=== PATIENT | female | born 1960 | race Caucasian/White ===

== ENCOUNTER 2020-02-02 17:29 | Inpatient (IN) | payer MEDICARE ==
[~2020-02-02] VITALS: Ht 165.1 cm; Wt 61.7 kg
--- NOTE | 2020-02-02 17:30 | NUR ---
jimbo, from home, on 5150 hold for danger to self, danger to others and being gravely disabled. depressed, "banging on doors and window" per report. to ER bed 11, hooked to monitor. patient calm and cooperative upon arrival to ED. sitter at bedside. patient denies SI/HI "I was just having an argument with my sister". Dr Robbins at bedside. kept safe and comfortable.
--- NOTE | 2020-02-02 17:35 | NUR ---
urine sample collected and sent to lab
[2020-02-02 18:13] LABS: BASOPHILS # (AUTO) 0.2 /CMM (0.0-0.2); BASOPHILS % (AUTO) 1.7 % (0.0-2.0); EOSINOPHILS % (AUTO) 1.1 % (0.0-6.0); HEMATOCRIT 40 % (33-45); HEMOGLOBIN 13.8 g/dL (11.5-14.8); LYMPHOCYTES # (AUTO) 1.8 /CMM (0.8-4.8); LYMPHOCYTES % (AUTO) 19.3 % (20.0-44.0); MEAN CORPUSCULAR HGB CONC 34 g/dl (31.0-36.0); MEAN CORPUSCULAR VOLUME 99 fL (82-100); MONOCYTES # (AUTO) 0.4 /CMM (0.1-1.30); MONOCYTES % (AUTO) 4.6 % (2.0-12.0); NEUTROPHILS # (AUTO) 6.8 /CMM (1.8-8.9); NEUTROPHILS % (AUTO) 73.3 % (43.0-81.0); PLATELET COUNT (AUTO) 217 /CMM (150-450); RED BLOOD CELL COUNT(AUTO) 4.04 MIL/uL (4.0-5.2); WHITE BLOOD COUNT (AUTO) 9.3 K/uL (4.3-11.0)
[2020-02-02 18:17] LABS: APPEARANCE,URINE Clear (CLEAR); BILIRUBIN,URINE Negative (NEGATIVE); BLOOD, URINE Negative Ery/uL (NEGATIVE); COLOR,URINE Yellow (YELLOW); KETONES,URINE Negative (NEGATIVE); LEUKOCYTE ESTERASE ,URINE Negative (NEGATIVE); NITRITE, URINE Negative (NEGATIVE); PH,URINE 6.5 (5.0-8.0); PROTEIN,URINE Negative (NEGATIVE); UGLUCOSE Negative (NEGATIVE); UROBILINOGEN,URINE 0.2 EU/dL (0.2)
[2020-02-02 18:32] LABS: ACETAMINOPHEN 0 ug/ml (10-30); ALANINE AMINOTRANSFERASE 39 U/L (12-78); ALBUMIN 3.9 g/dL (3.4-5.0); ALCOHOL, BLOOD < 3 mg/dL (0-0); ALKALINE PHOSPHATASE 95 U/L (46-116); ASPARTATE AMINOTRANSFERASE 28 U/L (15-37); BILIRUBIN,DIRECT 0.2 mg/dL (0.0-0.2); BILIRUBIN,TOTAL 0.8 mg/dL (0.2-1.0); CALCIUM, SERUM 8.8 mg/dL (8.5-10.1); CARBON DIOXIDE 26 mmol/L (21-32); CHLORIDE 102 mmol/L (98-107); CREATININE 0.9 mg/dL (0.6-1.3); GLUCOSE 102 mg/dL (74-106); POTASSIUM 3.4 mmol/L (3.5-5.1); SALICYLATE 6.2 mg/dL (2.8-20.0); SODIUM SERUM 137 mmol/L (136-145); TOTAL PROTEIN, SERUM 6.9 g/dL (6.4-8.2); UREA NITROGEN, BLOOD 8 mg/dL (7-18)
--- NOTE | 2020-02-02 18:43 | NUR ---
REPORT GIVEN TO GEORGETTE OF [facility]
--- NOTE | 2020-02-02 20:20 | NUR ---
GPS ADMISSION NOTE: RECEIVED PT. FROM [facility] ER. PT. ARRIVED IN THIS UNIT AT 2020 [facility] WITH 1 EMT STAFF. PT. ADMITTED ON 5150 HOLD FOR DTS, DTO, GD. PER HOLD PT. WAS AT HER MOTHER'S HOUSE, BANGING ON THE DOORS AND WINDOWS, GETTING INTO ARGUMENTS WITH MOTHER, DRIVING UNDER INFLUENCE, NOT SLEEPING AND EATING. PT STATES "I WANT TO KILL MYSELF." PT. IS DEPRESSED AND IS NOT ABLE TO MAKE RATIONAL DECISIONS. THE 5150 WAS REVIEWED AND THE DOCUMENTATION IN THE 5150 HOLD APPEARS TO REFLECT THE PRESENTATION OF PATIENT. UPON FACE TO FACE ASSESSMENT PATIENT IS NOTED TO BEING DISHEVELED, ANXIOUS, DEPRESSED. PT IS CURRENTLY IN ROOM RESTING/SLEEPING. NO SIGNS OF ACUTE DISTRESS, BREATHING UNLABORED WITH EQUAL RISE AND FALL OF CHEST. PT. IS A/O X3 ON ROOM AIR. PT. DENIES SI/HI AT THIS TIME. PT. SIGNED PAPERWORK. ADVISED OF HOLD. PT. IS UNDER PSYCHIATRIC CARE OF DR. LEIGH AND MEDICAL CARE OF DR. ARIAS. PT. BELONGINGS WERE INVENTORIED AND CHECKED FOR CONTRABAND. PT CHARTING AND SKIN ASSESSMENT DONE. PT. ORIENTED TO ROOM, FLOOR, STAFF. PT EDUCATED USE OF CALL LIGHT. BED SIDE RAILS UP X2 FOR SAFETY, BED IN LOCKED POSITION, LOW POSITION. WILL CONTINUE TO MONITOR FOR SAFETY AND BEHAVIOR.
[2020-02-02] MEDS ORDERED: POTASSIUM CHLORIDE 20 MEQ TAB.PRT.SR PO ONE (20:30)
[2020-02-02 21:00] VITALS: BP 145/95
[2020-02-02] MEDS ORDERED: BLOOD SUGAR DIAGNOSTIC 1 EACH STRIP IN ONE (21:00)
[2020-02-02] MEDS ORDERED: MAG HYDROX/AL HYDROX/SIMETH 30 ML UDC PO PRN (21:00)
[2020-02-02] MEDS ORDERED: MAGNESIUM HYDROXIDE 30 ML UDC PO PRN (21:00)
[2020-02-02] MEDS: LORAZEPAM 0.5 MG TABLET PO PRN (21:39)
--- NOTE | 2020-02-02 21:39 | NUR ---
GPS RN NOTE: ANXIETY PT. C/O OF BEING ANXIOUS AND REQUESTED ATIVAN. ADMINISTERED ATIVAN 0.5 MG PO PRN ORDERED. WILL CONTINUE TO MONITOR FOR SAFETY AND BEHAVIOR
[2020-02-02] MEDS ORDERED: FLUV50TA10 BC (22:37)
[2020-02-02] MEDS ORDERED: LORA-259 PO (22:37)
[2020-02-02] MEDS ORDERED: MIRT30TA PO (22:37)
[2020-02-03] MEDS: LORAZEPAM 0.5 MG TABLET PO PRN ×3 (07:19→19:57)
--- NOTE | 2020-02-03 07:19 | NUR ---
RN NOTE- ANXIETY/ PT W RESTLESSNESS ND ANXIETY. ATIVAN 0.5 MG GIVEN
[2020-02-03 07:25] LABS: ALBUMIN 3.5 g/dL (3.4-5.0); BILIRUBIN,TOTAL 0.6 mg/dL (0.2-1.0); CALCIUM, SERUM 8.7 mg/dL (8.5-10.1); CREATININE 0.8 mg/dL (0.6-1.3); PHOSPHORUS 3.2 mg/dL (2.5-4.9); POTASSIUM 4.3 mmol/L (3.5-5.1); TOTAL PROTEIN, SERUM 6.9 g/dL (6.4-8.2)
[2020-02-03 07:35] LABS: THYROID STIMULATING HORMONE 1.688 uIU/mL (0.358-3.74)
[2020-02-03 08:00] VITALS: BP 130/80
--- NOTE | 2020-02-03 09:00 | NUR ---
RN NOTE- PT UP IN ELO[place], PO INTAKE GOOD MED COMPLIANT DENIES SI HI AH VH DIRECTABLE WITHDRAWN CALM
--- NOTE | 2020-02-03 13:28 | NUR ---
RN NOTE- PT ANXIOUS AND RESTLESS. ATIVAN 0.5 MG GIVEN
--- NOTE | 2020-02-03 15:12 | NUR ---
Individual Counseling: This SW met with pt. at bedside to facilitate therapeutic milieu regarding support systems.The patient was receptive to meeting with SW. Patient discussed support systems and familial relationships. SW use active listening, mirroring and validation. Patient stated she has called her Mother, Bre and Sister, Laura to apologize. SW commended patient for reaching out to her family to discuss current situation. Patient demonstrates insight as evidenced by stating, "I need help for my alcoholism". Patient remained cooperative throughout discussion. Patient will be invited to participate in future counseling session
[2020-02-03 16:00] VITALS: BP 125/78
--- NOTE | 2020-02-03 16:25 | NUR ---
RN NOTE- SPOKE W HUMZA [phone] FAMILY MEMBER REGARDING PT. STATES THEY WERE TOLD FPT HAS PANCREATITIS BEFORE COMING TO THIS HOSPITAL. RANJIT FOOTE NOTIFIED AND ASKED TO PHONE FAMILY. PT ASYMPTOMATIC, NO AMYLASE OR LIPASE LABS NOTED.
[2020-02-03 20:29] VITALS: BP 117/63
[2020-02-03] MEDS: MIRTAZAPINE 15 MG TABLET PO SCH (21:15)
[2020-02-03] MEDS: risperiDONE 1 MG TABLET PO SCH (21:16)
[2020-02-04] MEDS: LORAZEPAM 0.5 MG TABLET PO PRN ×3 (06:51→17:49)
[2020-02-04 08:00] VITALS: BP 121/79
--- NOTE | 2020-02-04 10:05 | NUR ---
Family Contact: SW called the pts sister, Randee ([phone]), but the pts mother picked up. She stated that the SW should talk to Randee because she is aware of the pts finances and that she will have her call the SW when she returns to their home. Pts mother stated that the pt cannot return to living with them and that the PET team had informed them that the SW can place the pt. SW stated that she will attempt to place her once there is more information on her finances.
--- NOTE | 2020-02-04 10:14 | NUR ---
Initial Discharge Plan: Pt is currently homeless. Pt is open to placement options but states that she wants to go back to living with her mom and sister. SONNY will work with the MD and the pt regarding appropriate discharge planning. SW will form a safe and proper discharge plan.
--- NOTE | 2020-02-04 10:58 | NUR ---
RN NOTE:PATIENT C/O ANXIETY MEDICATED WITH ATIVAN0.5MG WILL CONTINUE TO MONITOR .
--- NOTE | 2020-02-04 11:15 | NUR ---
Family Contact: Pt's sister, Randee ([phone]), called the SW and stated that the pt cannot return to their home as the pt has been aggressive with the family members and partaking in alcohol usage. She stated that she thought that the pt wanted to go to a treatment center from the hospital when the SW mentioned a residential facility as a placement option. SW stated that the pt did not mention wanting to go to a treatment center and SW stated that she would talk to her about it. Pts sister stated that she did not want the pt to go to a SNF and would prefer that she is placed in a Board and Care facility. SW referred her to [facility] to start that process.
--- NOTE | 2020-02-04 12:48 | NUR ---
Substance Abuse Intervention: SW conducted a substance abuse intervention with the pt due to her alcohol abuse upon admission.
--- NOTE | 2020-02-04 12:58 | NUR ---
Individual Intervention: SW met with the pt to discuss discharge planning. SW provided the pt with all of the possible options and pt stated that she wanted to go home to her mom's house. SW continued to express to her that is not an option according to her family. Pt appeared to be agreeable to the nursing facility as she stated that she does not have the current funds for board and care placement. SW also informed her that the pts family would like for her to be admitted into a treatment program such as [facility] or [facility]. Pt stated that she has already detoxed and so she does not need an inpatient setting. Pt stated that she needs an outpatient and would like to attend from her mother's home. SW again explained that she cannot return to her mother's home and that she will need alternative placement. SW recommended that the pt speak to her family members that way a discharge plan can be set in motion when the SW follows up.
--- NOTE | 2020-02-04 14:04 | NUR ---
and SONNY NOTE: SONNY and met with pt with discuss her placement options. SW explained the difference between a SNF and a board and care, pt states she does not have a lot of income to pay for a board and care and states that she is open to SNF placement but then stated that she would also be interested in inpatient treatment only if she has her own room. SW explained that she wouldn't have her own room and that she would be sharing with someone else. Pt then became flustered and stated she needed to think about what she wanted to do.
[2020-02-04 16:00] VITALS: BP 112/78
[2020-02-04] MEDS: FLUVOXAMINE MALEATE 50 MG TABLET PO SCH (17:50)
--- NOTE | 2020-02-04 17:50 | NUR ---
RN NOTE:PATIENT C/O ANXIETY MEDICATED WITH ATIVAN0.5MG WILL CONTINUE TO MONITOR .
[2020-02-04 20:57] VITALS: BP 118/81
[2020-02-04] MEDS: MIRTAZAPINE 15 MG TABLET PO SCH (21:01)
[2020-02-04] MEDS: risperiDONE 1 MG TABLET PO SCH (21:01)
[2020-02-05 08:00] VITALS: BP 109/61
[2020-02-05] MEDS: LORAZEPAM 0.5 MG TABLET PO PRN ×2 (09:45→15:53)
--- NOTE | 2020-02-05 09:46 | NUR ---
RN-CO: Patient c/o anxiety Ativan 0.5 mg PO given.
--- NOTE | 2020-02-05 12:09 | NUR ---
Family Contact: Pt's sister, Randee ([phone]), called the SW and stated that she spoke to the pt who stated that the pt does not want to go to a SNF and that she is setting up board and care/independent living. SW stated that she is aware that there is an assessment with an independent living. SW stated that the SW will follow up with the discharge planning.
--- NOTE | 2020-02-05 15:53 | NUR ---
RN-CO: ATIVAN 0.5 MG PO FOR ANXIETY AND RESTLESSNESS.
[2020-02-05 16:00] VITALS: BP 111/88
[2020-02-05] MEDS: FLUVOXAMINE MALEATE 50 MG TABLET PO SCH (16:42)
[2020-02-05] MEDS ORDERED: FLUVOXAMINE MALEATE 50 MG TABLET PO ONE (18:00)
[2020-02-05 20:59] VITALS: BP 124/77
[2020-02-05] MEDS: MIRTAZAPINE 15 MG TABLET PO SCH (21:17)
[2020-02-05] MEDS: risperiDONE 1 MG TABLET PO SCH (21:17)
[2020-02-05] MEDS: TEMAZEPAM 7.5 MG CAPSULE PO PRN (23:04)
--- NOTE | 2020-02-05 23:04 | NUR ---
GPS RN NOTE: INSOMNIA PT. C/O OF UNABLE TO SLEEP AND REQUESTED SLEEPING PILL. ADMINISTERED RESTORIL 7.5 MG PO PRN ORDERED. WILL CONTINUE TO MONITOR FOR SAFETY AND BEHAVIOR
[2020-02-06 08:00] VITALS: BP 115/70
[2020-02-06] MEDS: LORAZEPAM 0.5 MG TABLET PO PRN ×2 (08:22→14:46)
--- NOTE | 2020-02-06 08:23 | NUR ---
GPS/RN-NOTES PATIENT REQUESTING ATIVAN. STATED" IT WILL HELP ME WITH MY ANXIETY" ATIVAN 0.5MG P.O GIVEN PRN ORDER. WILL CONT. MONITORING FOR SAFETY AND BEHAVIOR.
--- NOTE | 2020-02-06 09:30 | NUR ---
GPS/RN-NOTES PATIENT LAYING IN BED AWAKE,ALERT,CALM,NO ACUTE DISTRESS NOTED.
--- NOTE | 2020-02-06 12:57 | NUR ---
Family Contact: Pt's sister, Randee ([phone]), called the SW and the SW informed her that the pt will be having two assessments through the tablet in the nurses station and that the marketing community liaison was informed.
--- NOTE | 2020-02-06 14:50 | NUR ---
GPS/RN-NOTES ONE OF DIE ASSEMBLER GAVE ATIVAN 0.5MG P.O PER PATIENT REQUEST.
--- NOTE | 2020-02-06 15:08 | NUR ---
INDIVIDUAL INTERVENTION: SW attempted to meet with pt to discuss her discharge plan. Pt was on the phone with the assisted living and trying to make arrangements to do a virtual tour via Zoom and was not available to meet individually.
--- NOTE | 2020-02-06 15:35 | NUR ---
GPS/RN-NOTES PATIENT LAYING IN BED AWAKE,ALERT CALM ,NO ACUTE DISTRESS NOTED.
--- NOTE | 2020-02-06 15:46 | NUR ---
INDIVIDUAL MEETING: Pt informed SONNY that middleware administrator Jeanine from [facility] ([phone]) was unable to do the zoom interview as the nursing staff was not available at the time of her call. SONNY called Jeanine and left a voicemail to coordinate interview.
[2020-02-06 16:00] VITALS: BP 109/66
[2020-02-06] MEDS ORDERED: FLUVOXAMINE MALEATE 50 MG TABLET PO SCH (17:00)
[2020-02-06 20:43] VITALS: BP 99/68
[2020-02-06] MEDS: MIRTAZAPINE 15 MG TABLET PO SCH (21:17)
[2020-02-06] MEDS: risperiDONE 1 MG TABLET PO SCH (21:17)
--- NOTE | 2020-02-06 23:30 | NUR ---
RN NOTES RECEIVED PT. FROM GPS, GPS OVERFLOW, PT. IS A/OX3, AMBULATORY, CALM AND COOPERATIVE, SITTER AT BEDSIDE, NOT IN DITRESS, DENIES PAIN, SIDERAILSUPX2, CONTINUE TO MONITOR
[2020-02-06] MEDS: TEMAZEPAM 7.5 MG CAPSULE PO PRN (23:47)
--- NOTE | 2020-02-07 06:17 | NUR ---
RN NOTES AWAKE, MORNING CARE RENDERED, DENIES PAIN, NO SOB, PT. NEEDS ATTENDED
--- NOTE | 2020-02-07 07:15 | NUR ---
RN OPENING NOTES RECEIVED PT IN BED, AWAKE, A/O X2-3,ON RA, WITH NO ACUTE RESPIRATORY DISTRESS NOTED. PT DENIES ANY PAIN OR DISCOMFORT AT THIS TIME. PT DENIES ANY PAIN OR DISCOMFORT AT THIS TIME. DENIES ANY CONCERNS OR QUESTIONS WELL. NO IV ACCESS NOTED. P27ASCE MONITORING WITH 1:1 SITTER AT BEDSIDE. PT KEPT COMFORTABLE. CALL LIGHT KEPT WITHIN REACH. PT'S BED IN LOWEST, LOCKED POSITION WITH SR X3. WILL CONTINUE PLAN OF CARE.
--- NOTE | 2020-02-07 07:57 | NUR ---
RN NOTES PT TRANSFERRED BACK TO GPS UNIT VIA WHEELCHAIR. PT LEFT THE UNIT AT 0750. STABLE VITALS. BREAKFAST CONSUMED 50%. BEDSIDE ENDORSEMENT WITH RN/LILIAN FOR DEEPTHI.
--- NOTE | 2020-02-07 08:06 | NUR ---
GPS/RN-NOTES PATIENT BROUGHT IN BACK FROM [facility] ACCOMPANIED BY ONE RN NURSE . PATIENT ALERT ORIENTED X3 ,NO ACUTE DISTRESS NOTED, AMBULATORY STEADY GAIT. ALL PATIENT BELONGINGS WAS KEPT IN THE ROOM LOCKER.
[2020-02-07] MEDS: LORAZEPAM 0.5 MG TABLET PO PRN (08:45)
--- NOTE | 2020-02-07 08:46 | NUR ---
GPS/RN-NOTES PATIENT PACING IN THE HALLWAY REQUESTING ATIVAN. ATIVAN 0.5MG P.O GIVEN PRN ORDER. WILL CONT. MONITORING FOR SAFETY AND BEHAVIOR.
--- NOTE | 2020-02-07 09:46 | NUR ---
Individual Intervention: SONNY met with the pt who informed her that the assessments did not take place the previous day. SW stated that she will call and follow up with the administrators for the independent livings. SW also informed the pt that she has a probable cause hearing today and explained what the hearing entails.
--- NOTE | 2020-02-07 10:18 | NUR ---
Independent Living: SONNY called Yenifer ([phone]), from [facility], and discussed the tele assessment taking place at 1:30pm.
--- NOTE | 2020-02-07 10:46 | NUR ---
Independent Living: SW called Jeanine from [facility] ([phone]) and informed her that the SW will conduct the assessment today personally. She stated that she will call the SW around 2pm.
--- NOTE | 2020-02-07 10:53 | NUR ---
Family Contact: SW called the pts sister, Randee ([phone]), and informed her about the assessments that were going to take place today personally by the SW and apologized for the lack of coordination with the nursing staff the past two days. Pts sister expressed her frustration and the SW allowed her the space to do so. SW then expressed that it has been a difficult process with the virus and the hours with the staff managing so many tasks and assured her it will take place today as the SW is here all day.
--- NOTE | 2020-02-07 10:54 | NUR ---
Probable Cause (PC) Hearing Notification: SW called the pts sister, Randee ([phone]), and informed her about the pts PC hearing today and explained what that entails.
--- NOTE | 2020-02-07 14:19 | NUR ---
Independent Living: SONNY called Jeanine from [facility] ([phone]) and conducted the tele assessment and the virtual tour with the pt for potential placement.
--- NOTE | 2020-02-07 14:19 | NUR ---
Independent Living: SW called Yenifer ([phone]), from [facility], and conduct the tele assessment and virtual tour for the pt for placement in this facility.
--- NOTE | 2020-02-07 14:21 | NUR ---
Independent Living: Yenifer ([phone]), from [facility], called the SW and stated that she would like a COVID test to be done on the pt before admitting her. SW stated that if pts are asymptomatic then they are not being tested. SW stated that she can provide all of the pts vitals and a screening form that will state her symptoms or lack of. Yenifer stated that would not be acceptable and would still like a test to be conducted. SONNY stated that she will speak to her industrial gas servicer supervisor.
--- NOTE | 2020-02-07 15:45 | NUR ---
Family Contact: SONNY called the pts sister, Randee ([phone]), and informed her that the pt had her hearing and the officer decided to release her. Pts sister confirmed that the pt can return to their home for the time being and then be discharged to the Independent Living once she receives a COVID result from a testing center. Pts sister stated that no one can come pickle maker the pt and therefore SW stated that she will confirm with her aircraft engine mechanic supervisor that a taxi can be authorized. SONNY also provided the pts sister will an outpatient program referral to [facility] for the pt.
[2020-02-07 16:05] VITALS: BP 128/85
--- NOTE | 2020-02-07 16:05 | NUR ---
Discharge Note: Pt was discharged home to the address located at [address] [place] [address]; ([phone]). Pt was transported via taxi at 5:30pm. Pts sister, Laura ([phone]), was made aware of the discharge. Pt is no longer considered homeless as she came from her mothers house and is returning to her mothers house. Pt lives with her mother and sister at this location. Pt will be admitted to an Independent Living in a few days and will receive a COVID test at one of the testing centers. Upon discharge, pt appeared to be in a euthymic mood and presented with a calm affect. Pt is alert and oriented x4 (time, place, self and situation). Pt appears to be ambulatory with a steady gait. Pt appears to be calm and cooperative with fair insight. Pt denied both suicidal and homicidal ideation as well as auditory and visual hallucinations. Pt will be under the care of her psychiatrist, Dr. Yessenia Cedeno, located at [address], [place] [address]; and her elocution teacher, Dr. Srinivasan Lilly, located at [address], [place] [address]; . Addendum: 02/07/20 at 1628 by BONITA DENNIS Pt was discharged as she was released by the Courts as a result of her Probable Cause Hearing.
--- NOTE | 2020-02-07 16:19 | NUR ---
DR. LEIGH MADE AWARE THAT THE HOLD WERE NOT UPHELD AND ORDERED PT. HOME VIA A TAXI AND TO FOLLOW UP WITH PSYCH AND MEDICAL DOCTORS.
--- NOTE | 2020-02-07 16:32 | NUR ---
PRESCRIPTIONS FAXED TO [facility] WITH THE FAX# [phone] AND WITH THE TEL# FOR [phone] AND SPOKE TO CHANDRA.
--- NOTE | 2020-02-07 16:51 | NUR ---
GPS/RN-NOTES PATIENT WAS DISCHARGED BY THE COURT TODAY. DR. LEIGH (PSYCHIATRIST) MADE AWARE WITH ORDER TO DISCONTINUE HOLD AND DISCHARGE PATIENT. PATIENT WAS DISCHARGE TO HOME. [facility] ANALYST ALSO MADE AWARE AND AGREED OF THE DISCHARGE. PATIENT DID NOT VERBALIZE SI/HI,DENIES VISUAL/AUDITORY HALLUCINATIONS AT THE TIME OF DISCHARGE. ALL DISCHARGE MEDICATIONS WAS REVIEWED WITH THE PATIENT WITH UNDERSTANDING. MEDICATIONS WAS FAXED TO [facility] IN [facility]. ALL DISCHARGE PAPERS WAS SIGN BY THE PATIENT INCLUDING BELONGING LIST. PATIENT LEFT THE UNIT ALERT ORIENTED X4 AMBULATORY STEADY GAIT WITH ALL BELONGINGS. SHE WAS ASSISTED IN THE LOBBY BY THE CHARGE NURSE FOR SAFETY. PATIENT LEFT THE HOSPITAL VIA TAXI. PER SONNY ( BONITA) PATIENT' SISTER HUMZA MADE AWARE OF HER DISCHARGE.
[2020-02-07] MEDS ORDERED: BENZTROPINE MESYLATE (1 MG) 1 MG TABLET PO SCH (22:00)
== END 2020-02-07 16:50 | disposition home or self-care (01) | DRG 885 ==
LOC: ER 17:31 → GPS 18:46 → GPSOV 02-06 23:40 → GPS 02-07 07:55
PROVIDERS: ADMIT Psychiatry & Neurology Psychosomatic Medicine; ATTEND Nurse Practitioner Acute Care
DX: F33.2 Major depressive disorder, recurrent severe without psychotic features (principal); F23 Brief psychotic disorder; E87.6 Hypokalemia; F42.9 Obsessive-compulsive disorder, unspecified; F60.9 Personality disorder, unspecified
CPT/HCPCS: 36415; 80048-TC; 80053-TC; 80061-TC; 80076-TC; 80305; 81000-TC; 82962-TC; 83735-TC; 84100-TC; 84443-TC; 85025-TC; 87081-TC; G0480